=== PATIENT | male | born 2000 | race Two or more races ===

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

== ENCOUNTER 2018-05-02 15:58 | Emergency (ER) | payer MEDICAID ==
[~2018-05-02] VITALS: Ht 170.2 cm; Wt 88.5 kg
[2018-05-02] MEDS ORDERED: SODIUM CHLORIDE 0.9% 1,000 ML IVB ONE (16:10)
[2018-05-02 16:49] LABS: Basophils # (auto) 0 uL; Eosinophils # (auto) 0.2 uL; Hemoglobin 15.2 g/dL (13.5-17.5); Monocytes # (auto) 0.3 uL; Neutrophils # (auto) 5.2 uL; Platelet Count (auto) 236 10^3/uL (140-450); White Blood Cell 7.5 10^3/uL (4.4-10.8)
[2018-05-02 16:51] LABS: Basophils % (auto) 0.4 % (0.0-2.0); Eosinophils % (auto) 2.8 % (0.0-7.0); Hematocrit 47.1 % (41.0-53.0); Lymphocytes # (auto) 1.8 uL; Lymphocytes % (auto) 24.3 % (10.0-50.0); Mean Corpuscular Hemoglobin 23.9 pg (28.0-32.0); Mean Corpuscular Hgb Conc. 32.3 g/dL (32.0-36.0); Neutrophils % (auto) 68.5 % (37.0-80.0); Nucleated Red Blood Cells % 0.1 %; Red Blood Cells 6.36 10^6/uL (4.5-5.90); Red Cell Distribution Width 15.9 % (11.8-14.3)
[2018-05-02 16:58] LABS: Alanine Aminotransferase 67 U/L (16-61); Albumin 4.1 g/dL (3.4-5.0); Anion Gap 10 (5-15); Aspartate Aminotransferase 26 U/L (15-37); BUN/Creatinine Ratio 11.9; Blood Alcohol < 3.0 mg/dL (0-5); Blood Urea Nitrogen 12 mg/dL (7-18); Calcium 8.9 mg/dL (8.5-10.1); Carbon Dioxide 22 mmol/L (21-32); Chloride 110 mmol/L (98-107); GFR African American 122 mL/min; GFR Non-African American 101 mL/min; Glucose 83 mg/dL (74-106); Potassium 3.8 mmol/L (3.5-5.1); Sodium 142 mmol/L (136-145)
[2018-05-02 17:02] LABS: Alkaline Phosphatase 133 U/L (45-117); Bilirubin, Total 0.4 mg/dL (0.2-1.0); Total Protein 8.2 g/dL (6.4-8.2)
[2018-05-02 17:26] VITALS: BP 130/78
== END 2018-05-02 17:37 | disposition home or self-care (01) ==
LOC: EDBD 15:58 → ER 16:04
DX: R55 Syncope and collapse (principal); R56.9 Unspecified convulsions; F12.10 Cannabis abuse, uncomplicated
CPT/HCPCS: 36415; 70450; 80053; 80320; 85025; 94761; 99284; J7030; 96360

== ENCOUNTER → 2019-07-20 | Emergency (ER) | payer MEDICAID ==
[~2019-07-20] VITALS: Ht 185.4 cm; Wt 154.2 kg
[~2019-07-20] MED LIST: SODIUM CHLORIDE 0.9% 1,000 ML IV ONE
[2019-07-20 08:59] LABS: Basophils # (auto) 0 uL; Eosinophils # (auto) 0.2 uL; Monocytes # (auto) 0.4 uL; Monocytes % (auto) 4.1 % (0.0-12.0)
[2019-07-20 09:01] LABS: Basophils % (auto) 0.3 % (0.0-2.0); Eosinophils % (auto) 1.7 % (0.0-7.0); Hematocrit 49.4 % (41.0-53.0); Lymphocytes # (auto) 1.8 uL; Lymphocytes % (auto) 17.2 % (10.0-50.0); Mean Corpuscular Hemoglobin 23.2 pg (28.0-32.0); Mean Corpuscular Hgb Conc. 32.4 g/dL (32.0-36.0); Mean Corpuscular Volume 71.7 fL (80.0-100.0); Neutrophils # (auto) 8.2 uL; Neutrophils % (auto) 76.7 % (37.0-80.0); Platelet Count (auto) 280 10^3/uL (140-450); Red Blood Cells 6.89 10^6/uL (4.5-5.90); Red Cell Distribution Width 14.8 % (11.8-14.3); White Blood Cell 10.7 10^3/uL (4.4-10.8)
[2019-07-20 09:22] VITALS: BP 99/62
[2019-07-20 09:22] LABS: Albumin 3.9 g/dL (3.4-5.0); Calcium 9.3 mg/dL (8.5-10.1); Potassium 4.1 mmol/L (3.5-5.1)
[2019-07-20 09:25] LABS: BUN/Creatinine Ratio 16.7; Bilirubin, Total 0.4 mg/dL (0.2-1.0); Total Protein 8.3 g/dL (6.4-8.2)
== END | disposition home or self-care (01) ==
LOC: EDUNIT# 07:47 → ER 07:52 → EDBD 07:52
DX: R55 Syncope and collapse (principal); R41.82 Altered mental status, unspecified; F41.9 Anxiety disorder, unspecified
CPT/HCPCS: 36415; 70450; 71046; 80053; 85025; 93005; 96360; 96361; 99285; J7030

== ENCOUNTER 2019-10-11 07:38 | Emergency (ER) | payer MEDICAID ==
[~2019-10-11] VITALS: Ht 180.3 cm; Wt 127.0 kg
[2019-10-11] MEDS ORDERED: SODIUM CHLORIDE 0.9% 1,000 ML IV ONE (07:53)
[2019-10-11] MEDS ORDERED: LORazepam 2MG/ML-1ML VIAL IV ONE (08:00)
[2019-10-11 08:07] LABS: Eosinophils # (auto) 0.3 10 ^3/uL (0-0.8); Monocytes # (auto) 0.4 10 ^3/uL (0-1.3)
[2019-10-11 08:08] LABS: Basophils # (auto) 0.1 10 ^3/uL (0-0.2); Basophils % (auto) 0.7 % (0.0-2.0); Eosinophils % (auto) 4.1 % (0.0-7.0); Hemoglobin 15.7 g/dL (13.5-17.5); Lymphocytes # (auto) 3.2 10 ^3/uL (0.4-5.4); Lymphocytes % (auto) 38.5 % (10.0-50.0); Mean Corpuscular Hemoglobin 23.5 pg (28.0-32.0); Mean Corpuscular Hgb Conc. 32.1 g/dL (32.0-36.0); Mean Corpuscular Volume 73.1 fL (80.0-100.0); Monocytes % (auto) 4.8 % (0.0-12.0); Neutrophils # (auto) 4.3 10 ^3/uL (1.6-8.6); Neutrophils % (auto) 51.9 % (37.0-80.0); Nucleated Red Blood Cells % 0.2 %; Platelet Count (auto) 278 10^3/uL (140-450); Red Cell Distribution Width 15.3 % (11.8-14.3); White Blood Cell 8.2 10^3/uL (4.4-10.8)
[2019-10-11 08:23] LABS: Albumin 3.6 g/dL (3.4-5.0); Calcium 8.6 mg/dL (8.5-10.1); Magnesium 2.4 mg/dL (1.6-2.6); Potassium 4.1 mmol/L (3.5-5.1)
[2019-10-11 08:26] LABS: BUN/Creatinine Ratio 9.5; Bilirubin, Total 0.3 mg/dL (0.2-1.0); Total Protein 8.4 g/dL (6.4-8.2)
[2019-10-11 10:18] VITALS: BP 136/81
[2019-10-11] MEDS ORDERED: levETIRAcetam 500 MG TAB PO ONE (11:45)
[2019-10-11 11:46] LABS: Urine Bacteria NONE SEEN /hpf (None Seen); Urine Blood TRACE /uL (Negative); Urine WBC 1 /hpf (0 - 3)
[2019-10-11 11:49] LABS: Alcohol, Urine < 3.0 mg/dL (0-5); Amphetamine Screen, Urine NEGATIVE (NEGATIVE); Barbiturate Scree,Urine NEGATIVE (NEGATIVE); Benzodiazephine Screen, Urine NEGATIVE (NEGATIVE); Cannabinoid Screen, Urine POSITIVE (NEGATIVE); Cocaine Screen, Urine NEGATIVE (NEGATIVE); Opiate Scree,Urine NEGATIVE (NEGATIVE)
[2019-10-11 11:56] LABS: Phencyclidine Screen, Urine NEGATIVE (NEGATIVE)
== END 2019-10-11 11:45 | disposition home or self-care (01) ==
LOC: ER 07:38
DX: S05.12XA Contusion of eyeball and orbital tissues, left eye, initial encounter (principal); G40.909 Epilepsy, unspecified, not intractable, without status epilepticus; X58.XXXA Exposure to other specified factors, initial encounter; Y93.89 Activity, other specified; Y92.89 Other specified places as the place of occurrence of the external cause; Y99.8 Other external cause status
CPT/HCPCS: 36415; 80053; 80307; 81001; 83735; 84443; 85025; 93005; 96374; 99284; J2060

== ENCOUNTER 2020-02-21 10:16 | Emergency (ER) | payer MEDICAID ==
[~2020-02-21] VITALS: Ht 180.3 cm; Wt 139.3 kg
[2020-02-21 10:25] VITALS: BP 131/63
== END 2020-02-21 11:06 | disposition home or self-care (01) ==
LOC: ER 10:16
DX: S02.2XXA Fracture of nasal bones, initial encounter for closed fracture (principal); S00.83XA Contusion of other part of head, initial encounter; G40.909 Epilepsy, unspecified, not intractable, without status epilepticus; W18.09XA Striking against other object with subsequent fall, initial encounter; Y93.89 Activity, other specified; Y92.89 Other specified places as the place of occurrence of the external cause; Y99.8 Other external cause status
CPT/HCPCS: 70160

== ENCOUNTER 2024-03-14 09:23 | Emergency (ER) | payer MEDICARE, MEDICAID ==
[~2024-03-14] VITALS: Ht 182.9 cm; Wt 136.6 kg
[2024-03-14 09:45] VITALS: PULSE 68; RESP 18; TEMP 96.3; O2SAT 96
[2024-03-14] MEDS: levETIRAcetam 1000 mg/100ml 100 ML IV ONE (10:01)
[2024-03-14 13:14] LABS: Urine Bacteria None Seen /hpf (None Seen)
[2024-03-14 13:42] LABS: Urine Blood 1+ /uL (Negative); Urine Clarity Clear (Clear); Urine Color Light-Yellow (Yellow); Urine Protein, UAD 1+ (Negative); Urine Specific Gravity 1.017 (1.001-1.035); Urine Sperm PRESENT /hpf (None Seen); Urine Urobilinogen Normal (Negative); Urine WBC <1 /hpf (0 - 3); Urine pH 5.5 (5.0-9.0)
[2024-03-14] MEDS: PROPOFOL 10 MG/ML 20 ML IV ONE (13:48)
[2024-03-14 14:00] VITALS: BP 124/66
[2024-03-14 14:10] VITALS: PULSE 72; RESP 20; O2SAT 97
[2024-03-14] MEDS ORDERED: OXYC-900 PO (15:49)
[2024-03-14] MEDS ORDERED: OXY5T GT (16:05)
[2024-03-17] MEDS ORDERED: LEVE100012 PO (14:25)
[2024-03-17] MEDS ORDERED: LAMO150T26 PO (14:25)
[2024-03-17] MEDS ORDERED: LACO100T3 PO (14:25)
[2024-03-17] MEDS ORDERED: LACO200T3 PO (14:25)
== END 2024-03-14 16:28 | disposition home or self-care (01) ==
LOC: EDBD 09:23 → ER 09:23
DX: S82.831A Other fracture of upper and lower end of right fibula, initial encounter for closed fracture (principal); F17.200 Nicotine dependence, unspecified, uncomplicated; F12.10 Cannabis abuse, uncomplicated; W01.0XXA Fall on same level from slipping, tripping and stumbling without subsequent striking against object, initial encounter; Y93.89 Activity, other specified; Y92.89 Other specified places as the place of occurrence of the external cause; Y99.8 Other external cause status
CPT/HCPCS: 27788; 73610; 81001; 96365; 99285; J1953; J2704

== ENCOUNTER 2024-03-20 07:04 | Day surgery (SDC) | payer MEDICARE, MEDICAID ==
[~2024-03-20] VITALS: Ht 180.3 cm; Wt 140.6 kg
[~2024-03-20 07:04] MED LIST changes: +LACO100T3 PO; +LACO200T3 PO; +LAMO150T26 PO; +LEVE100012 PO; -SODIUM CHLORIDE 0.9% 1,000 ML IV ONE
[2024-03-20] MEDS ORDERED: KETOROLAC TROMETH 30 MG/ML 1ML VIAL IV ONE ×2 (10:00)
[2024-03-20] MEDS ORDERED: ONDANSETRON HCL 4 MG/2 ML VIAL IV ONE (10:00)
[2024-03-20] MEDS ORDERED: MORPHINE SULFATE 4 MG/ML SYR/VIAL IV PRN ×4 (10:00)
[2024-03-20] MEDS ORDERED: ePHEDrine SULFATE 50 MG/ML AMP IV PRN (10:00)
[2024-03-20] MEDS ORDERED: HYDROmorphone HCL 2 MG/ML VL/or syr ONE ×2 (10:37→11:31)
[2024-03-20] MEDS ORDERED: ONDANSETRON HCL 4 MG/2 ML VIAL ONE (11:00)
[2024-03-20] MEDS ORDERED: PROPOFOL 10 MG/ML 20 ML IV ONE (11:00)
[2024-03-20] MEDS ORDERED: KETOROLAC TROMETH 30 MG/ML 1ML VIAL ONE (11:00)
[2024-03-20] MEDS ORDERED: DexAMETHasone SOD PHOS 10MG/1ML VIAL INJ ONE (11:00)
[2024-03-20] MEDS ORDERED: ROCURONIUM 10MG/ML 10ML VIAL IV ONE (11:00)
[2024-03-20] MEDS ORDERED: SUGAMMADEX 200mg/2ml Vial (100MG/ML) IV ONE (11:21)
[2024-03-20 11:37] VITALS: O2SAT 94
[2024-03-20 13:16] VITALS: BP 130/71; PULSE 83; RESP 16; O2SAT 94
== END 2024-03-20 13:27 | disposition home or self-care (01) ==
LOC: SUR 07:04
PROVIDERS: ATTEND Orthopaedic Surgery Adult Reconstructive Orthopaedic Surgery
DX: S82.851A Displaced trimalleolar fracture of right lower leg, initial encounter for closed fracture (principal); M25.673 Stiffness of unspecified ankle, not elsewhere classified; E66.9 Obesity, unspecified; Z98.890 Other specified postprocedural states; G40.909 Epilepsy, unspecified, not intractable, without status epilepticus; X50.1XXA Overexertion from prolonged static or awkward postures, initial encounter; Y93.89 Activity, other specified; Y92.89 Other specified places as the place of occurrence of the external cause; Y99.8 Other external cause status
CPT/HCPCS: 27822; 27829; 73600; 76000; C1713; J1100; J1171; J1885; J2405; J2704